=== PATIENT | female | born 1955 | race Asian ===

== ENCOUNTER 2024-01-16 06:00 | Day surgery (SDC) | payer MEDICARE ==
[2024-01-11 11:17] VITALS: BMI 26.4
[~2024-01-16 06:00] MED LIST: LIDOCAINE 1% (10MG/ML) FOR IV START INTRADERMA PRN
[2024-01-16] MEDS: IV FLUID CONTINUATION 1,000 ML IV ONE (06:43)
[2024-01-16] MEDS: LACTATED RINGERS 1,000 ML IV SCH (06:56)
[2024-01-16 06:59] VITALS: RESP 16; TEMP 97
[2024-01-16] MEDS ORDERED: LIDOCAINE 1% INJ 10MG/ML (20 ML MDV) ONE (07:00)
[2024-01-16] MEDS ORDERED: PROPOFOL 10 MG/ML 20 ML VIAL IV ONE (07:00)
--- NOTE | 2024-01-16 07:26 | P.PCN ---
Date of Procedure: 01/16/24 Procedure(s) Performed: Brief history: Patient is a pleasant 68-year-old female scheduled for an elective upper endoscopy as well as colonoscopy as a part of evaluation of History of GERD and screening for colon cancer Procedure performed: Esophagogastroduodenoscopy with biopsy upper endoscopy revealed Colonoscopy Preoperative diagnosis: Longstanding history of GERD Screening for colon cancer Anesthesia: MAC Procedure: After informed consent was obtained from the patient was brought into the endoscopy unit and IV sedation was administered by anesthesia under continuous monitoring. Initially upper endoscopy was done. The Olympus GF 160 video endoscope was inserted inserted into the mouth and esophagus intubated without any difficulty and was gradually advanced into the stomach and duodenum and carefully examined. The bulb and the second part of the duodenum there was a 7 mm duodenal polyp identified which was biopsied. Of the duodenum appeared normal. The scope was then withdrawn into the stomach adequately insufflated with air and upon careful examination the antrum had scattered erosions and biopsies were done from this area. Because of the body, cardia and fundus appeared normal. The scope was then withdrawn into the esophagus. Small hiatal hernia noted. The GE junction was located at 37 cm to the incisors. It appeared regular with no erythema erosions or ulcerations. Rest of the esophagus appeared normal. Patient tolerated the procedure well. At this time the patient continued to remain sedation. Initial digital rectal examination was normal. Olympus CF 160 video colonoscope was then inserted into the rectum and gradually advanced to the cecum without any difficulty. Careful examination was performed as the scope was gradually being withdrawn. The prep was excellent. The cecum, ascending colon, transverse colon, descending colon, sigmoid colon and rectum appeared normal. Retroflexion was performed in the rectum and no lesions were noted. Patient tolerated the procedure well. Impression: 1. Upper endoscopy revealed 7 mm duodenal polyp in the second part of the duodenum s/p biopsy, small hiatal hernia and antral erosive gastritis 2. Colonoscopy was within normal limits with no evidence of colorectal neoplasia Recommendations: Findings of this examination were discussed with the patient as well as her family. She was advised to follow-up with the biopsy results. Continue with Pepcid 20 mg at bedtime and Nexium as needed and follow antireflux measures. Recommended repeat screening colonoscopy in 10 years.
[2024-01-16 07:58] VITALS: BP 136/80; PULSE 74
== END 2024-01-16 08:18 | disposition home or self-care (01) ==
LOC: ORWHC2ENDO 06:00
PROVIDERS: ATTEND Internal Medicine Gastroenterology
DX: Z12.11 Encounter for screening for malignant neoplasm of colon (principal); K29.60 Other gastritis without bleeding; K21.9 Gastro-esophageal reflux disease without esophagitis; K31.7 Polyp of stomach and duodenum; K44.9 Diaphragmatic hernia without obstruction or gangrene; Z98.890 Other specified postprocedural states
CPT/HCPCS: 43239; G0121; 88305; 88341; 88342